=== PATIENT | female | born 2000 | race Caucasian/White ===

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

== ENCOUNTER 2021-08-29 21:46 | Emergency (ER) | payer MEDICAID, SELFPAY ==
[2021-08-29 22:03] VITALS: BP 102/60; PULSE 75; RESP 16; TEMP 36.7; O2SAT 100
--- NOTE | 2021-08-29 22:42 | ED_ITS ---
HPI - Female Genitourinary General: Chief complaint: Urogenital-Female Time Seen by Provider: 08/29/21 22:33 Source: patient Mode of arrival: ambulatory Limitations: no limitations History of Present Illness: HPI Narrative: 21-year-old female states that she does have a new sexual partner and believes she has an STD. States over the last week she been having genital itching along with a discharge that is foul- smelling. States she is also 1 day late for her period. She denies any fever denies any abdominal pain. Denies any worsening improving factors. Associated symptoms: Reports vaginal discharge; Deny abdominal pain, headache(s) or nausea Review of Systems Const: Denies: fever(s), chills, body aches or change in appetite Eyes: Denies: blurry vision or eye discomfort ENMT: Denies: throat pain or dental pain Card: Denies: chest pain Resp: Denies: dyspnea GI: Denies: abdominal pain, nausea, vomiting or diarrhea : Reports: genital pruritis and vaginal discharge Musc: Denies: neck pain or back pain Skin/Breast: Denies: rash Neuro: Denies: headache(s) Psych: Denies: depression Best/Lymph: Denies: easy bruising All/Imm: Denies: urticaria Physical Exam Const: COMMON NORMALS: no acute distress, patient oriented x3 and healthy appearing HENMT: COMMON NORMALS: normocephalic and atraumatic HEAD & SCALP: normocephalic and atraumatic Eye: COMMON NORMALS: Equal, round and reactive pupils present and EOMs intact bilaterally PUPIL: Yes Equal, round and reactive pupils present Neck/C-Spine: COMMON NORMALS: full ROM and supple Chest: COMMONS NORMALS: normal inspection of the chest and normal palpation of entire chest wall Resp: COMMON NORMALS: normal respiratory effort, No retractions, No use of accessory muscles and clear to auscultation bilaterally AUSCULTATION: clear to auscultation bilaterally Cardio: COMMON NORMALS: regular rate, regular rhythm and No murmurs present (Cardio) RATE: regular rate RHYTHM: regular rhythm GI: COMMON NORMALS: Normal to inspection, nondistended, normoactive bowel sounds present, Soft to palpation, non-tender and no masses PALPATION: Yes Soft to palpation : OTHER: Slight cervicitis with discharge no cervical motion tenderness Extremity: COMMON NORMALS: normal to inspection and full ROM Neuro: COMMON NORMALS: patient oriented x3, moves all extremities and no focal motor deficits Psych: COMMON NORMALS: mental status grossly normal, Normal thought process present and cooperative THOUGHT PROCESS: Normal thought process present Skin: COMMON NORMALS: no rashes or lesions noted and no wounds GENERAL SKIN EXAM: no rashes or lesions noted Course Vital Signs: Vital signs: Vital Signs Temperature 98.1 F 08/29/21 22:03 Pulse Rate 75 08/29/21 22:03 Respiratory Rate 16 08/29/21 22:03 Blood Pressure 102/60 08/29/21 22:03 Pulse Oximetry 100 08/29/21 22:03 MDM - Female MDM Narrative: Medical decision making narrative: Patient presents with vaginal discharge likely STD patient given Rocephin and azithromycin here. She has no signs of PID. She is stable for discharge counseled on safe sex and is to return if worsening. Lab Data: Labs: Lab Results 08/29/21 08/29/21 22:35 22:35 HCG, Qual Negative (Negative) Urine Color Yellow (Yellow) Urine Appearance Turbid (CLEAR) Urine pH 5 (5-7) Ur Specific Gravit y 1.020 (1.005-1.030) Urine Protein Neg (Negative) Urine Glucose (UA) Norm (Normal) Urine Ketones Negative (Negative) Urine Blood 2+ H (Negative) Urine Nitrate Positive H (Negative) Urine Bilirubin Neg (Negative) Urine Urobilinogen Norm mg/dL mg/dL (Negative) Ur Leukocyte Iram ase 2+ H (Negative) Urine RBC 5-10 /hpf H /hpf (0-2) Urine WBC 10-15 /hpf H /hpf (0-5) Ur Squamous Epith Cells 25-40 /hpf H /hpf (0-5) Amorphous Sediment Not Reportable Urine Bacteria 4+ /hpf H /hpf (NONE) Discharge Plan Discharge Patient Disposition: Home Clinical Impression: Vaginal discharge Condition: Stable Prescriptions: No Action 28-800 mg-mcg Tablet See Rx Instructions .ROUTE .COMPLEX RF: 0 Discharge Orders: Discharge ED (Routine); Ordered 08/29/21 Ordered By: Seth King Discharge Diet: Advance as tolerated Discharge Activity: Resume usual activity Patient Instructions: Vaginal Discharge (ED) Coding Level of Care Code ED Exceptional Children'S Teacher for Chg Fwd Exam Comprehensive
[2021-08-29 22:48] LABS: HCG Qualitative Urine. Negative (Negative)
[2021-08-29 22:58] LABS: Add Urine Culture? No; Add Urine Microscopic? YES; Bacteria Urine 4+ /hpf; Bilirubin Urine Neg (Negative); Blood Urine 2+ (Negative); Glucose Urine UA Norm (Normal); Ketones Urine Negative (Negative); Leukocyte Esterase Urine 2+ (Negative); Nitrate Urine Positive (Negative); Protein Urine Neg (Negative); Squamous Epithelial Cell Urine 25-40 /hpf (0-5); Urine Appearance Turbid (CLEAR); Urine Color Yellow (Yellow); Urobilinogen Urine Norm (Negative); pH Urine 5 (5-7)
[2021-08-29] MEDS: azithromycin 250 mg Tablet 1000 MG PO (23:39)
[2021-08-29 23:49] VITALS: RESP 16
== END 2021-08-29 23:51 | disposition home or self-care (01) ==
PROVIDERS: Emergency Provider Emergency Medicine
DX: N89.8 Other specified noninflammatory disorders of vagina (principal); Z20.2 Contact with and (suspected) exposure to infections with a predominantly sexual mode of transmission
CPT/HCPCS: 81001; 81025; 87210; 87491; 87591; 96372; 99283; J0696; Q0144

== ENCOUNTER 2022-02-25 11:13 | Emergency (ER) | payer MEDICAID, SELFPAY ==
[2022-02-25 11:30] VITALS: BP 99/57; PULSE 80; RESP 18; TEMP 37; O2SAT 98; BMI 25.7
--- NOTE | 2022-02-25 12:13 | XRR_ITS ---
PROCEDURE INFORMATION: Exam: XR Chest Exam date and time: 02/25/2022 12:35 PM Age: 22 years old Clinical indication: Cough and dyspnea; Additional info: Cough; Shield-preg TECHNIQUE: Imaging protocol: XR of the chest. Views: 1 view. COMPARISON: CT abdomen pelvis w con* [id number] 06/05/2019 6:23 AM FINDINGS: Lungs: Unremarkable. No consolidation. Pleural spaces: Unremarkable. No pleural effusion. No pneumothorax. Heart/Mediastinum: Unremarkable. No cardiomegaly. Bones/joints: Unremarkable. XR/XR chest 1V portable [id number] IMPRESSION: No acute findings.
[2022-02-25 12:23] VITALS: BP 100/69; PULSE 88; RESP 18; O2SAT 98
--- NOTE | 2022-02-25 12:39 | W.ED.URI ---
HPI - URI/Sore Throat General: Chief Complaint: General Medical Stated Complaint: Sore Throat, Diff breathing Time Seen by Provider: 02/25/22 11:36 Source: patient and family () Mode of arrival: ambulatory Limitations: no limitations History of Present Illness: Patient is a 22-year-old female presents to ED today with complaint of a cough, runny nose, nasal congestion, sore throat, and hoarseness that been present over the past 2 to 3 days. Patient states her daughter is sick with similar symptoms. She has not been running fevers. No abdominal pains, nausea, vomiting, diarrhea. She is 6 months . No vaginal bleeding/leaking of fluids. Normal movements. MD elicited complaint: cough, sore throat, rhinorrhea and nasal congestion Onset (ago): day(s) Description of mucous: clear Able to tolerate fluids by mouth: Yes Context: sick contacts (daughter) Associated symptoms: Reports nasal congestion; Deny abdominal pain, chills, chest pain, diarrhea, ear or mastoid pain, fever(s), headache(s), nausea or vomiting Treatments prior to arrival: cold medicine Review of Systems Const: Denies: fever(s), chills, body aches, fatigue or malaise Eyes: Denies: change in vision ENMT: Reports: throat pain, odynophagia, nasal discharge, nasal congestion and other (hoarseness); Denies: uvular edema, enlarged tonsils, swelling of lips/tongue, oral sores, dental pain, ear or mastoid pain or ear discharge Card: Denies: chest pain Resp: Reports: non-productive cough; Denies: dyspnea, wheezing or hemoptysis GI: Denies: abdominal pain, nausea, vomiting or diarrhea Musc: Denies: neck pain, back pain, extremity pain or joint pain Skin/Breast: Denies: rash Neuro: Denies: headache(s) Physical Exam Const: COMMON NORMALS: no acute distress, average body habitus, patient oriented x3, no limitations, healthy appearing, alert and well nourished HENMT: COMMON NORMALS: normocephalic, atraumatic and Normal external nose present HEAD & SCALP: normal to inspection, normocephalic and atraumatic FACE & SINUS: normal facial exam and sinuses nontender NOSE: Normal external nose present MOUTH: Normal oral and palatal mucosa present, lip normal and tongue normal THROAT: posterior oropharynx normal, tonsils normal, uvula midline and other (hoarseness); no uvular edema Eye: GENERAL EYE: appearance normal, both eyes and all related structures Neck/C-Spine: COMMON NORMALS: full ROM, no lymphadenopathy and no meningeal signs Resp: COMMON NORMALS: normal respiratory effort and clear to auscultation bilaterally AUSCULTATION: clear to auscultation bilaterally Cardio: COMMON NORMALS: regular rate and regular rhythm RATE: regular rate RHYTHM: regular rhythm GI: COMMON NORMALS: Normal to inspection, nondistended, normoactive bowel sounds present and non-tender INSPECTION: Yes gravid abdomen : COMMON NORMALS: Yes no CVA tenderness BLADDER/KIDNEY EXAM: Yes no CVA tenderness Back/Pelvis: COMMON NORMALS: no CVA tenderness Extremity: COMMON NORMALS: normal to inspection Neuro: COMMON NORMALS: patient oriented x3 SENSORIUM/ORIENTATION: Yes alert MENINGEAL SIGNS: Yes no meningeal signs Skin: COMMON NORMALS: no rashes or lesions noted GENERAL SKIN EXAM: no rashes or lesions noted Course Vital Signs: Vital signs: Vital Signs Temperature 98.6 F 02/25/22 11:30 Pulse Rate 92 02/25/22 13:02 Respiratory Rate 18 02/25/22 13:02 Blood Pressure 104/72 02/25/22 13:02 Pulse Oximetry 97 02/25/22 13:02 MDM - URI/Sore Throat Medical Decision Making Clinically patient appears in no acute distress. Her vital signs are normal. CXR is normal. Patient is afebrile. Discussed how symptoms are most likely related to viral upper respiratory infection. We discussed extensively regarding conservative treatments she can try at home that would be safe in as well as safe OTC options. Return to ED precautions given. Lab Data Radiology Impressions Chest X-Ray 02/25/22 12:13 IMPRESSION: No acute findings. Discharge Plan Discharge Patient Disposition: Home Clinical Impression: Viral upper respiratory infection Condition: Stable Prescriptions: No Action 28-800 mg-mcg Tablet See Rx Instructions .ROUTE .COMPLEX 0RF Rx Instructions: ONE DOSE DAILY Discharge Orders: Discharge ED (Routine); Ordered 02/25/22 Ordered By: Salma De Luna Patient Instructions: Upper Respiratory Infection (ED) Stand Alone Forms: Work/School Release Coding Level of Care Code ED Ophthalmic Technologist for Chg Fwd Exam Comprehensive
[2022-02-25 13:02] VITALS: BP 104/72; PULSE 92; RESP 18; O2SAT 97
== END 2022-02-25 13:03 | disposition home or self-care (01) ==
PROVIDERS: Emergency Provider Physician Assistant
DX: J06.9 Acute upper respiratory infection, unspecified (principal)
CPT/HCPCS: 71045; 99282

== ENCOUNTER 2022-04-17 18:05 | Outpatient (CLI) | payer MEDICAID, SELFPAY ==
[2022-04-17] VITALS (37 sets, daily range): BP systolic 110–137; BP diastolic 59–79; PULSE 92–178; RESP 16; O2SAT 91–100; BMI 26.2
[2022-04-17] MEDS: terbutaline 1 mg/mL INJ 0.25 MG SUBCUT ×2 (19:21→20:49)
[2022-04-17] MEDS: lactated ringers 1,000 ML 999 ML IV (20:49)
--- NOTE | 2022-04-17 22:10 | PC.NURSE ---
Physician Communication Summary 2018 Call placed by this nurse to Dr. Davies to report contractions approximately 4-6 minutes apart, but with difficulty tracing. Also reported cervical exam of no change from previous exam, patient's cervix is closed with a dimple. MD ordered one liter of lactated ringers and one additional dose of 0.25 mg Brethine. [id number] Davies reporting 1 contraction in 20 minutes according to patient report with contraction marker. Also reported a reactive NST. MD ordered to discharge patient home after fluids have finished.
== END 2022-04-17 21:46 | disposition home or self-care (01) ==
LOC: OPOB 18:14 → OBGYN 18:18
PROVIDERS: Visit Provider Family Medicine
DX: O26.899 Other specified pregnancy related conditions, unspecified trimester (principal); Z3A.00 Weeks of gestation of pregnancy not specified; R10.9 Unspecified abdominal pain
CPT/HCPCS: 59025; 96372; 99211; J3105

== ENCOUNTER 2022-10-11 23:09 | Emergency (ER) | payer MEDICAID, SELFPAY ==
[2022-10-11 23:15] VITALS: BP 137/75; PULSE 80; RESP 16; TEMP 36.4; O2SAT 99; BMI 24.0
--- NOTE | 2022-10-11 23:26 | ED_ITS ---
HPI - General: Chief complaint: Vaginal Bleeding Stated complaint: might be wanting blood work Time Seen by Provider: 10/11/22 23:24 Source: patient Mode of arrival: ambulatory Limitations: no limitations History of Present Illness: 22-year-old female who believes she may be . She states she took a home test a week ago was positive states she started having bleeding after that though. Her last menstruation was in August. She states she is unsure if she is actually or not and wants a blood test. She denies any pain denies any heavy bleeding. Denies passing any clots or tissue Date of Last Menstrual Period: 09/06/22 Associated symptoms: Deny abdominal pain, headache(s), nausea or vomiting Review of Systems Const: Denies: fever(s), chills, body aches or change in appetite Eyes: Denies: blurry vision or eye discomfort ENMT: Denies: throat pain or dental pain Card: Denies: chest pain Resp: Denies: dyspnea GI: Denies: abdominal pain, nausea, vomiting or diarrhea : Reports: vaginal bleeding Musc: Denies: neck pain or back pain Skin/Breast: Denies: rash Neuro: Denies: headache(s) Psych: Denies: depression Best/Lymph: Denies: easy bruising All/Imm: Denies: urticaria PFSH ED PFSH: Medical History (Updated 10/12/22 @ 00:27 by Seth King MD) No pertinent past medical history Social History (Updated 10/11/22 @ 23:26 by Seth King MD) Substance/Drug Use: never Female Reproductive History: Date of last menstrual period: 09/06/22 Physical Exam Const: COMMON NORMALS: no acute distress, patient oriented x3 and healthy appearing HENMT: COMMON NORMALS: normocephalic and atraumatic HEAD & SCALP: normocephalic and atraumatic Eye: COMMON NORMALS: Equal, round and reactive pupils present and EOMs intact bilaterally PUPIL: Yes Equal, round and reactive pupils present Neck/C-Spine: COMMON NORMALS: full ROM and supple Chest: COMMONS NORMALS: normal inspection of the chest and normal palpation of entire chest wall Resp: COMMON NORMALS: normal respiratory effort, No retractions, No use of accessory muscles and clear to auscultation bilaterally AUSCULTATION: clear to auscultation bilaterally Cardio: COMMON NORMALS: regular rate, regular rhythm and No murmurs present (Cardio) RATE: regular rate RHYTHM: regular rhythm GI: COMMON NORMALS: Normal to inspection, nondistended, normoactive bowel sounds present, Soft to palpation, non-tender and no masses PALPATION: Yes Soft to palpation Extremity: COMMON NORMALS: normal to inspection and full ROM Neuro: COMMON NORMALS: patient oriented x3, moves all extremities and no focal motor deficits Psych: COMMON NORMALS: mental status grossly normal, Normal thought process present and cooperative THOUGHT PROCESS: Normal thought process present Skin: COMMON NORMALS: no rashes or lesions noted and no wounds GENERAL SKIN EXAM: no rashes or lesions noted Course Vital Signs: Vital signs: Vital Signs Temperature 97.6 F 10/11/22 23:15 Pulse Rate 80 10/11/22 23:15 Respiratory Rate 16 10/11/22 23:15 Blood Pressure 137/75 10/11/22 23:15 Pulse Oximetry 99 10/11/22 23:15 Oxygen Delivery Me thod 10/11/22 23:15 MDM - OB/Uterine Contractions Medical Decision Making Patient presents here with vaginal bleeding likely her menstruation her testing is negative she is well-appearing here she is not bleeding a large amount she is stable for discharge. Lab Data Laboratory Results Ser , Semi-Qnt 1.00 mIU/mL 10/11/22 23:55 Discharge Plan Discharge Patient Disposition: Home Clinical Impression: Vaginal bleeding Prescriptions: No Action 28-800 mg-mcg Tablet See Rx Instructions .ROUTE .COMPLEX Rx Instructions: ONE DOSE DAILY Discharge Orders: Discharge ED (Routine); Ordered 10/12/22 Ordered By: Seth King Discharge Diet: Advance as tolerated Discharge Activity: Resume usual activity Patient Instructions: Abnormal (Dysfunctional) Uterine Bleeding (ED) Coding Level of Care Code ED Database Report Writer for Chg Fwd Exam Comprehensive
[2022-10-12 00:35] VITALS: BP 102/66; PULSE 72; RESP 16; O2SAT 97
== END 2022-10-12 00:36 | disposition home or self-care (01) ==
PROVIDERS: Emergency Provider Emergency Medicine
DX: N93.9 Abnormal uterine and vaginal bleeding, unspecified (principal)
CPT/HCPCS: 36415; 84702; 99282

== ENCOUNTER 2023-06-14 10:54 | Emergency (ER) | payer MEDICAID, SELFPAY ==
[2023-06-14 11:10] VITALS: BP 93/65; PULSE 71; RESP 18; TEMP 36.7; O2SAT 100; BMI 25.9
[2023-06-14 12:04] LABS: Basophils # 0.1 10^3/uL (0.0-0.1); Basophils % 0.4 %; Eosinophils % 0.2 %; Hematocrit 33.6 % (37.0-47.0); Hemoglobin 10.5 g/dL (11.5-15.3); Lymphocytes # 3.1 10^3/uL (0.8-4.8); Lymphocytes % 23.2 %; Mean Corpuscular HGB Conc 31.3 g/dL (30.0-36.0); Mean Corpuscular Hemoglobin 27.6 pg (28.0-34.0); Mean Corpuscular Volume 88.2 fl (81-99); Monocytes # 0.6 10^3/uL (0.2-0.9); Monocytes % 4.2 %; Neutrophils # 9.62 10^3/uL (1.8-7.7); Neutrophils % 71.6 %; Nucleated Red Blood Cells % 0 %; Platelet Count 262 10^3/cmm (130-400); Red Blood Count 3.81 10^6/uL (4.1-5.3); Red Cell Distribution Width 14.6 % (12.1-15.1); White Blood Count 13.5 10^3/uL (4.0-10.0)
[2023-06-14 12:07] VITALS: BP 115/58; PULSE 76; RESP 16; O2SAT 97
[2023-06-14 12:28] LABS: Alanine Aminotransferase 6 U/L (0-33); Albumin Level 3.7 g/dL (3.5-5.2); Alkaline Phosphatase 71 U/L (35-105); Anion Gap 15.8 (5-19); Aspartate Amino Transferase 13 U/L (0-32); Blood Urea Nitrogen 7 mg/dL (6-20); Carbon Dioxide 19 mmol/L (22-29); Chloride 103 mmol/L (98-107); Globulin 3.2 g/dL (1.3-4.6); Glomerular Filtration Rate 199.6 mL/min (90-130); Glucose 76 mg/dL (65-115); Lipase 18 U/L (13-60); Osmolality Calculated 275 mOsm/kg (285-295); Potassium 3.8 mmol/L (3.5-5.1); Sodium 134 mmol/L (136-145); Total Bilirubin 0.5 mg/dL (0.15-1.2); Total Protein 6.9 g/dL (6.6-8.7)
--- NOTE | 2023-06-14 12:33 | W.ED.ABDPA2 ---
HPI - Abdominal Pain General: Chief Complaint: Abdominal Pain Stated Complaint: 18 Weeks preg, abd pain, Dizzy Time Seen by Provider: 06/14/23 11:56 Source: patient Mode of arrival: ambulatory History of Present Illness: 23-year-old female G1, P0 at approximately 18 weeks gestation comes in complaining lower abdominal pain and cramping with dizziness, vomiting and nausea. She has not had any diarrhea. She denies any vaginal discharge or bleeding no dysuria urgency or frequency. MD elicited complaint: abdominal pain Onset (ago): hour(s) Pain Consistency: intermittent Location: Suprapubic Severity: moderate Quality: cramping Radiation: none Associated Symptoms: Reports GI cramping, nausea and poor appetite; Denies anorexia, belching, bloating, change in bowel habits, change in stool character, chills, coffee ground emesis, constipation, diarrhea, dyspepsia, dysuria, excessive flatus, fever(s), heartburn, hematochezia, hematuria, hematemesis, fecal incontinence, loose stools, melena, syncope and vomiting Review of Systems Const: Denies: fever(s) or chills Card: Denies: chest pain, palpitations, irregular heart rhythm or syncope Resp: Denies: dyspnea, productive cough or non-productive cough GI: Reports: nausea and GI cramping; Denies: vomiting, hematemesis, coffee ground emesis, heartburn, diarrhea, constipation, bloating, belching, excessive flatus, fecal incontinence, change in bowel habits, change in stool character, hematochezia or melena : Denies: dysuria, urinary frequency, urinary urgency or hematuria Musc: Denies: neck pain or back pain Skin/Breast: Denies: rash or pruritus PFSH ED PFSH: Medical History No pertinent past medical history Social History Substance/Drug Use: never Physical Exam Const: GENERAL APPEARANCE: cooperative and comfortable ORIENTATION/CONSCIOUSNESS: Yes awake, Yes oriented to person, Yes oriented to place and Yes oriented to time HENMT: COMMON NORMALS: normocephalic, atraumatic and hearing grossly normal bilaterally HEAD & SCALP: normocephalic and atraumatic Resp: COMMON NORMALS: normal respiratory effort, No retractions, No use of accessory muscles and clear to auscultation bilaterally AUSCULTATION: clear to auscultation bilaterally Cardio: COMMON NORMALS: regular rate, regular rhythm and No murmurs present (Cardio) RATE: regular rate RHYTHM: regular rhythm GI: COMMON NORMALS: Soft to palpation and No hepatosplenomegaly present AUSCULTATION: Yes normoactive bowel sounds PALPATION: Yes Soft to palpation, No Tenderness to palpation present (GI), No Guarding due to palpation present (GI) and Yes No hepatosplenomegaly present Extremity: COMMON NORMALS: normal to inspection, capillary refill normal, no clubbing, cyanosis or edema, no calf tenderness and no pedal edema Neuro: SENSORIUM/ORIENTATION: Yes oriented to person, Yes oriented to place and Yes oriented to time Skin: COMMON NORMALS: no rashes or lesions noted GENERAL SKIN EXAM: no rashes or lesions noted Course Vital Signs: Vital signs: Vital Signs Temperature 98.0 F 06/14/23 11:10 Pulse Rate 76 06/14/23 12:07 Respiratory Rate 16 06/14/23 12:07 Blood Pressure 115/58 06/14/23 12:07 Pulse Oximetry 97 06/14/23 12:07 Oxygen Delivery Me thod Room Air 06/14/23 12:07 MDM - Abdominal Pain Medical Decision Making Nausea and vomiting improved after fluids and medications. Bedside ultrasound gross motion and activity noted. heart tones 130s to 140s. Clear liquid diet 24 to 48 hours promethazine as needed for nausea vomiting follow-up with OB Medical Records I reviewed the patient's medical records. Lab Data I reviewed the patient's lab results. 06/14/23 11:57 06/14/23 11:57 Labs/Radiology: Laboratory Results WBC 13.5 10^3/uL (4.0-10.0) H 06/14/23 11:57 RBC 3.81 10^6/uL (4.1-5.3) L 06/14/23 11:57 Hgb 10.5 g/dL (11.5-15.3) L 06/14/23 11:57 Hct 33.6 % (37.0-47.0) L 06/14/23 11:57 MCV 88.2 fl (81-99) 06/14/23 11:57 MCH 27.6 pg (28.0-34.0) L 06/14/23 11:57 MCHC 31.3 g/dL (30.0-36.0) 06/14/23 11:57 RDW 14.6 % (12.1-15.1) 06/14/23 11:57 Plt Count 262 10^3/cmm (130-400) 06/14/23 11:57 MPV 10.0 fL (7.4-10.4) 06/14/23 11:57 Neut % (Auto) 71.6 % 06/14/23 11:57 Lymph % (Auto) 23.2 % 06/14/23 11:57 [place] % (Auto) 4.2 % 06/14/23 11:57 Eos % (Auto) 0.2 % 06/14/23 11:57 Baso % (Auto) 0.4 % 06/14/23 11:57 Neut # (Auto) 9.62 10^3/uL (1.8-7.7) H 06/14/23 11:57 Lymph # (Auto) 3.1 10^3/uL (0.8-4.8) 06/14/23 11:57 [place] # (Auto) 0.6 10^3/uL (0.2-0.9) 06/14/23 11:57 Eos # (Auto) 0.0 10^3/uL (0.0-0.8) 06/14/23 11:57 Baso # (Auto) 0.1 10^3/uL (0.0-0.1) 06/14/23 11:57 Nucleated RBC % (auto) 0 % 06/14/23 11:57 Nucleated RBCs # 0.0 /100WBC 06/14/23 11:57 Sodium 134 mmol/L (136-145) L 06/14/23 11:57 Potassium 3.8 mmol/L (3.5-5.1) 06/14/23 11:57 Chloride 103 mmol/L (98-107) 06/14/23 11:57 Carbon Dioxide 19 mmol/L (22-29) L 06/14/23 11:57 Anion Gap 15.8 (5-19) 06/14/23 11:57 BUN 7 mg/dL (6-20) 06/14/23 11:57 Creatinine 0.4 mg/dL (0.5-0.9) L 06/14/23 11:57 GFR Calculation 199.6 mL/min (90-130) H 06/14/23 11:57 Glucose 76 mg/dL (65-115) 06/14/23 11:57 Calculated Osmolality 275 mOsm/kg (285-295) L 06/14/23 11:57 Calcium 9.0 mg/dL (8.5-10.5) 06/14/23 11:57 Total Bilirubin 0.5 mg/dL (0.15-1.2) 06/14/23 11:57 AST 13 U/L (0-32) 06/14/23 11:57 ALT 6 U/L (0-33) 06/14/23 11:57 Alkaline Phosphatase 71 U/L (35-105) 06/14/23 11:57 Total Protein 6.9 g/dL (6.6-8.7) 06/14/23 11:57 Albumin 3.7 g/dL (3.5-5.2) 06/14/23 11:57 Globulin 3.2 g/dL (1.3-4.6) 06/14/23 11:57 Lipase 18 U/L (13-60) 06/14/23 11:57 Urine Color Yellow (Yellow) 06/14/23 13:11 Urine Appearance Clear (CLEAR) 06/14/23 13:11 Urine pH 6 (5-7) 06/14/23 13:11 Ur Specific [place] 1.020 (1.005-1.030) 06/14/23 13:11 Urine Protein Neg (Negative) 06/14/23 13:11 Urine Glucose (UA) Norm (Normal) 06/14/23 13:11 Urine Ketones 1+ (Negative) H 06/14/23 13:11 Urine Blood Neg (Negative) 06/14/23 13:11 Urine Nitrate Negative (Negative) 06/14/23 13:11 Urine Bilirubin Neg (Negative) 06/14/23 13:11 Urine Urobilinogen Norm mg/dL (Negative) 06/14/23 13:11 Ur Leukocyte Esterase Negative (Negative) 06/14/23 13:11 Discharge Plan Discharge Patient Disposition: Home Clinical Impression: Nausea & vomiting Condition: Stable Prescriptions: New promethazine 25 mg tablet 25 mg PO Q6H PRN (Reason: nausea and vomiting) Qty: 20 0RF No Action 28-800 mg-mcg Tablet 1 tab PO DAILY nitrofurantoin macrocrystal 50 mg capsule 50 mg PO BEDTIME nitrofurantoin monohyd/m-cryst 100 mg capsule 100 mg PO BID acetaminophen 500 mg Tablet 500 mg PO Q6H PRN (Reason: Pain) Discharge Orders: Discharge ED (Routine); Ordered 06/14/23 Ordered By: Jairo Villagomez Discharge Diet: Clear Liquid Discharge Activity: Resume usual activity Patient Instructions: Opioid Safety, Pain Management Activity Restrictions/Additional Instructions: You are seen today for persistent nausea vomiting your labs and urine were normal. Bedside ultrasound showed good heart activity and gross motion. Follow-up with your OB as previously scheduled. Clinical diet for 24 to 48 hours promethazine as needed for nausea vomiting Coding Level of Care Code ED Mohs Surgeon/General Dermatologist for [facility]
[2023-06-14] MEDS: sodium chloride 0.9% 1,000 ML 999 ML IV (12:54)
[2023-06-14] MEDS: ondansetron 2 mg/ML SDV 2 mL 4 MG IVP (12:54)
[2023-06-14 13:17] LABS: Add Urine Microscopic? NO; Charge for UA Resulting for Rev
[2023-06-14 13:31] LABS: Bilirubin Urine Neg (Negative); Blood Urine Neg (Negative); Glucose Urine UA Norm (Normal); Ketones Urine 1+ (Negative); Leukocyte Esterase Urine Negative (Negative); Nitrate Urine Negative (Negative); Protein Urine Neg (Negative); Urine Appearance Clear (CLEAR); Urine Color Yellow (Yellow); Urobilinogen Urine Norm (Negative); pH Urine 6 (5-7)
== END 2023-06-14 14:10 | disposition home or self-care (01) ==
PROVIDERS: Physician Assistant; Emergency Provider Family Medicine
DX: O21.0 Mild hyperemesis gravidarum (principal); Z3A.18 18 weeks gestation of pregnancy; Z79.899 Other long term (current) drug therapy
CPT/HCPCS: 36415; 80053; 81003; 83690; 85025; 96374; 99284; J2405; J7030

== ENCOUNTER 2024-04-30 12:50 | Emergency (ER) | payer MEDICAID, SELFPAY ==
[2024-04-30 13:05] VITALS: BP 96/62; PULSE 83; RESP 16; TEMP 36.8; O2SAT 97; BMI 24.0
[2024-04-30 15:11] VITALS: BP 102/64; PULSE 71; RESP 16; O2SAT 99
--- NOTE | 2024-04-30 15:27 | CTR_ITS ---
PROCEDURE INFORMATION: Exam: CT Abdomen And Pelvis With Contrast Exam date and time: 04/30/2024 4:24 PM Age: 24 years old Clinical indication: Abdominal pain; Localized; Left lower quadrant (llq); Patient HX: Patient describes new llq pain but is also having ruq/flank pain that she has DONAHUE for years but has worsened. ; Additional info: Ruq abdominal pain TECHNIQUE: Imaging protocol: Computed tomography of the abdomen and pelvis with contrast. Radiation optimization: All CT scans at this facility use at least one of these dose optimization techniques: automated exposure control; mA and/or kV adjustment per patient size (includes targeted exams where dose is matched to clinical indication); or iterative reconstruction. Contrast material: OMNI 350; Contrast volume: 100 ml; Contrast route: INTRAVENOUS (IV); COMPARISON: No relevant prior studies available. RADIATION DOSE METRICS: Total DLP (mGy-cm): 633.94 FINDINGS: Lungs: 3 mm right lower lobe nodule series 3, image 8. Liver: No significant liver pathology. Gallbladder and bile ducts: No significant gallbladder pathology. No biliary dilatation. Pancreas: No significant pancreatic pathology. Spleen: No significant splenic pathology. Adrenal glands: No significant adrenal pathology. Kidneys and ureters: No significant renal pathology. Stomach and bowel: No significant pathology. Appendix: Appendix within normal limits. Intraperitoneal space: Minimal free fluid is present in the pelvis. Vasculature: No abdominal aortic aneurysm. Lymph nodes: No evidence of lymphadenopathy. Urinary bladder: Small amount of air is present in the urinary bladder. Reproductive: Partially crenulated right ovarian cyst measuring 2 cm with surrounding low attenuation most likely representing recently ruptured cyst/ corpus luteum. Left adnexa unremarkable. No significant uterine pathology. Bones/joints: No significant bony pathology. Soft tissues: Small fat containing umbilical hernia. CT/CT abdomen pelvis w con* [id number] IMPRESSION: 1. No acute pathology. Partially crenulated 2 cm right adnexal cyst most likely representing recently ruptured ovarian cyst or corpus luteum. 2. 3 mm right lower lobe nodule. Per Fleischner criteria, in this age group 12 month follow-up is recommended only in the setting of high risk for malignancy. Clinical correlation recommended.
--- NOTE | 2024-04-30 15:44 | ED_ITS ---
HPI - Abdominal Pain 2 General: Chief Complaint: Abdominal Pain Stated Complaint: abd pain Time Seen by Provider: 04/30/24 13:28 History of Present Illness: 24-year-old female presents emergency de partment chief complaint of having ongoing right upper quadrant and left lower quadrant abdominal pain has been progressively worse last couple days patient reports additional moderate nausea with that she does endorse a prior history of 3 C-sections in the past patient reports no other abdominal surgery she reports she still has her appendix and gallbladder. Patient reports that the pain is worse with eating she reports no back pain or flank pain associated with it or any dysuria. Patient presents to the ER with her for further assessment and management. Associated Symptoms: Reports nausea; Denies chills, fever(s) and vomiting Review of Systems 2 General: Reports: 10 or more systems reviewed and unremarkable except in HPI and below Const: Denies: fever(s), chills, fatigue or malaise Eyes: Denies: change in vision or blurry vision Card: Denies: chest pain or palpitations Resp: Denies: dyspnea or productive cough GI: Reports: abdominal pain and nausea; Denies: vomiting : Denies: flank pain Musc: Denies: extremity pain or extremity swelling Skin/Breast: Denies: rash or pruritus Neuro: Denies: headache(s) Psych: Denies: anxiety or depression Best/Lymph: Denies: easy bleeding All/Imm: Denies: urticaria, throat swelling or facial swelling PFSH ED 2 PFSH: Medical History No pertinent past medical history Social History Substance/Drug Use: never Physical Exam 2 Narrative: EXAM NARRATIVE: Mild distress due to pain and discomfort. Afebrile and nontoxic Const: COMMON NORMALS: patient oriented x3 and healthy appearing HENMT: COMMON NORMALS: normocephalic and atraumatic HEAD & SCALP: n ormocephalic and atraumatic Eye: COMMON NORMALS: Equal, round and reactive pupils present and EOMs intact bilaterally PUPIL: Yes Equal, round and reactive pupils present Neck/C-Spine: COMMON NORMALS: full ROM, supple and no JVD Lymph: LYMPHATIC: no lymphadenopathy noted Chest: COMMONS NORMALS: normal inspection of the chest and normal palpation of entire chest wall Resp: COMMON NORMALS: normal respiratory effort, No retractions and clear to auscultation bilaterally EFFORT & INSPECTION: Yes able to speak in complete sentences and Yes symmetric chest movement AUSCULTATION: clear to auscultation bilaterally Cardio: COMMON NORMALS: no JVD, regular rate and regular rhythm RATE: r egular rate RHYTHM: regular rhythm GI: OTHER: Moderate pain to palpation located in the right upper quadrant as well as left lower quadrant with mild rebound tenderness appreciated otherwise soft nontender : COMMON NORMALS: Yes no CVA tenderness BLADDER/KIDNEY EXAM: Yes no CVA tenderness Back/Pelvis: COMMON NORMALS: no CVA tenderness Extremity: COMMON NORMALS: normal to inspection and full ROM Neuro: COMMON NORMALS: patient oriented x3, CN's II-XII intact bilaterally, moves all extremities and no focal motor deficits Psych: COMMON NORMALS: mental status grossly normal, Normal thought process present, cooperative and normal affect THOUGHT PROCESS: Normal thought process present Skin: COMMON NORMALS: no rashes or lesions noted GENERAL SKIN EXAM: no rashes or lesions noted Course 2 Vital Signs: Vital signs: Vital Signs Temperature 98.3 F 04/30/24 13:05 Pulse Rate 58 L 04/30/24 19:30 Respiratory Rate 16 04/30/24 19:30 Blood Pressure 104/50 04/30/24 19:30 Pulse Oximetry 99 04/30/24 19:30 Oxygen Delivery Me thod Room Air 04/30/24 19:30 MDM - Abdominal Pain Medical Decision Making Due to patient's symptoms and condition lab work and imaging will be obtained medication provided for the patient's associated symptoms we will continue to follow patient's lab work came back reassuring patient was have a right adnexal cyst there was some air noted in the urinary bladder in which is recommended for evaluation for infection urinalysis came back unremarkable patient was advised to further follow-up with primary care in 2 to 3 days in which instructed to return the interim if any of her symptoms persist or worse. She was placed on limited prescription of tramadol for her breakthrough pain control. Lab Data 04/30/24 15:47 04/30/24 15:47 Labs/Radiology: Radiology Impressions Abdomen/Pelvis CT 04/30/24 15:27 IMPRESSION: 1. No acute pathology. Partially crenulated 2 cm right adnexal cyst most likely representing recently ruptured ovarian cyst or corpus luteum. 2. 3 mm right lower lobe nodule. Per Fleischner criteria, in this age group 12 month follow-up is recommended only in the setting of high risk for malignancy. Clinical correlation recommended. ADDENDUM: 04/30/24 1740 Following statement should have been included in the impression: Air is present in the urinary bladder. Clinical correlation with any recent instrumentation recommended as this appearance can also be seen in setting of infection or fistula. ADDENDUM: 04/30/24 1746 THIS REPORT CONTAINS FINDINGS THAT MAY BE CRITICAL TO PATIENT CARE. The findings were verbally communicated via telephone conference with SOLIS GONZALEZ at 5:45 PM CDT on 04/30/2024. The findings were acknowledged and understood. ADDENDUM: 04/30/[address] dated 06/05/2019 has become available for comparison. A right lower lobe nodule measuring 3 mm is not significantly changed consistent with benign pathology. No further follow-up is required per Fleischner criteria. Laboratory Results WBC 10.40 10^3/uL (3.29-11.43) 04/30/24 15:47 RBC 4.42 10^6/uL (3.85-5.65) 04/30/24 15:47 Hgb 12.30 g/dL (11.27-16.99) 04/30/24 15:47 Hct 38.0 % (36-47) 04/30/24 15:47 MCV 86.0 fl (85-98) 04/30/24 15:47 MCH 27.8 pg (27-33) 04/30/24 15:47 MCHC 32.4 g/dL (30-55) 04/30/24 15:47 RDW 15.1 % (12.1-15.1) 04/30/24 15:47 Plt Count 317 10^3/cmm (157-399) 04/30/24 15:47 MPV 10.1 fL (7.4-10.4) 04/30/24 15:47 Neut % (Auto) 61.4 % 04/30/24 15:47 Lymph % (Auto) 30.9 % 04/30/24 15:47 [place] % (Auto) 5.5 % 04/30/24 15:47 Eos % (Auto) 0.6 % 04/30/24 15:47 Baso % (Auto) 0.4 % 04/30/24 15:47 Neut # (Auto) 6.40 10^3/uL (1.8-7.7) 04/30/24 15:47 Lymph # (Auto) 3.2 10^3/uL (0.8-4.8) 04/30/24 15:47 [place] # (Auto) 0.6 10^3/uL (0.2-0.9) 04/30/24 15:47 Eos # (Auto) 0.1 10^3/uL (0.0-0.8) 04/30/24 15:47 Baso # (Auto) 0.0 10^3/uL (0.0-0.1) 04/30/24 15:47 Nucleated RBC % (auto) 0 % 04/30/24 15:47 Nucleated RBCs # 0.0 /100WBC 04/30/24 15:47 Sodium 142 mmol/L (136-145) 04/30/24 15:47 Potassium 4.2 mmol/L (3.5-5.1) 04/30/24 15:47 Chloride 107 mmol/L (98-107) 04/30/24 15:47 Carbon Dioxide 25 mmol/L (22-29) 04/30/24 15:47 Anion Gap 14.2 (5-19) 04/30/24 15:47 BUN 10 mg/dL (6-20) 04/30/24 15:47 Creatinine 0.6 mg/dL (0.5-0.9) 04/30/24 15:47 GFR Calculation 123.9 mL/min (90-130) 04/30/24 15:47 Glucose 86 mg/dL (65-115) 04/30/24 15:47 Calculated Osmolality 292 mOsm/kg (285-295) 04/30/24 15:47 Calcium 9.2 mg/dL (8.5-10.5) 04/30/24 15:47 Total Bilirubin 0.5 mg/dL (0.15-1.2) 04/30/24 15:47 AST 19 U/L (0-32) 04/30/24 15:47 ALT 16 U/L (0-33) 04/30/24 15:47 Alkaline Phosphatase 84 U/L (35-105) 04/30/24 15:47 C-Reactive Protein 3.3 mg/L (0.0-4.9) 04/30/24 15:47 Total Protein 8.0 g/dL (6.6-8.7) 04/30/24 15:47 Albumin 4.4 g/dL (3.5-5.2) 04/30/24 15:47 Globulin 3.6 g/dL (1.3-4.6) 04/30/24 15:47 Lipase 25 U/L (13-60) 04/30/24 15:47 Urine Color Yellow (Yellow) 04/30/24 15:00 Urine Appearance Clear (CLEAR) 04/30/24 15:00 Urine pH 7 (5-7) 04/30/24 15:00 Ur Specific [place] 1.015 (1.005-1.030) 04/30/24 15:00 Urine Protein Neg (Negative) 04/30/24 15:00 Urine Glucose (UA) Norm (Normal) 04/30/24 15:00 Urine Ketones Negative (Negative) 04/30/24 15:00 Urine Blood Neg (Negative) 04/30/24 15:00 Urine Nitrate Negative (Negative) 04/30/24 15:00 Urine Bilirubin Neg (Negative) 04/30/24 15:00 Urine Urobilinogen Norm mg/dL (Negative) 04/30/24 15:00 Ur Leukocyte Esterase Negative (Negative) 04/30/24 15:00 All radiology interpretation(s) finalized by discharge Discharge Plan Discharge Patient Disposition: Home Clinical Impression: Ovarian cyst rupture Abdominal pain Qualifiers: Abdominal location: generalized Qualified Code(s): R10.84 - Generalized abdominal pain Condition: Stable Prescriptions: New tramadol 50 mg tablet 50 mg PO Q8H PRN (Reason: pain) Qty: 20 0RF No Action 28-800 mg-mcg Tablet 1 tab PO DAILY nitrofurantoin macrocrystal 50 mg capsule 50 mg PO BEDTIME nitrofurantoin monohyd/m-cryst 100 mg capsule 100 mg PO BID acetaminophen 500 mg Tablet 500 mg PO Q6H PRN (Reason: Pain) promethazine 25 mg tablet 25 mg PO Q6H PRN (Reason: nausea and vomiting) Qty: 20 0RF Discharge Orders: Discharge ED (Routine); Ordered 04/30/24 Ordered By: Solis Gonzalez Patient Instructions: Abdominal Pain (ED), Opioid Safety, Pain Management Coding Level of Care Code ED [employer] for [facility]
[2024-04-30] MEDS: ketorolac 30 mg/mL INJ IVP (15:55)
[2024-04-30] MEDS: ondansetron 2 mg/ML SDV 2 mL 4 MG IVP (15:55)
[2024-04-30] MEDS: sodium chloride 0.9% 1,000 ML 999 ML IV (15:55)
[2024-04-30 15:57] LABS: Add Urine Microscopic? NO; Charge for UA Resulting for Rev
[2024-04-30 16:00] VITALS: BP 114/55; PULSE 57; O2SAT 98
[2024-04-30 16:01] LABS: Basophils % 0.4 %; Eosinophils # 0.1 10^3/uL (0.0-0.8); Eosinophils % 0.6 %; Lymphocytes # 3.2 10^3/uL (0.8-4.8); Lymphocytes % 30.9 %; Mean Corpuscular HGB Conc 32.4 g/dL (30-55); Mean Corpuscular Hemoglobin 27.8 pg (27-33); Mean Platelet Volume 10.1 fL (7.4-10.4); Monocytes # 0.6 10^3/uL (0.2-0.9); Monocytes % 5.5 %; Neutrophils % 61.4 %; Nucleated Red Blood Cells % 0 %; Platelet Count 317 10^3/cmm (157-399); Red Blood Count 4.42 10^6/uL (3.85-5.65); Red Cell Distribution Width 15.1 % (12.1-15.1)
[2024-04-30 16:02] LABS: Bilirubin Urine Neg (Negative); Blood Urine Neg (Negative); Glucose Urine UA Norm (Normal); Ketones Urine Negative (Negative); Leukocyte Esterase Urine Negative (Negative); Nitrate Urine Negative (Negative); Protein Urine Neg (Negative); Specific Gravity, Urine 1.015 (1.005-1.030); Urine Appearance Clear (CLEAR); Urine Color Yellow (Yellow); Urobilinogen Urine Norm (Negative); pH Urine 7 (5-7)
[2024-04-30 16:21] LABS: Alanine Aminotransferase 16 U/L (0-33); Albumin Level 4.4 g/dL (3.5-5.2); Alkaline Phosphatase 84 U/L (35-105); Aspartate Amino Transferase 19 U/L (0-32); Blood Urea Nitrogen 10 mg/dL (6-20); C Reactive Protein 3.3 mg/L (0.0-4.9); Calcium 9.2 mg/dL (8.5-10.5); Carbon Dioxide 25 mmol/L (22-29); Chloride 107 mmol/L (98-107); Creatinine Clr Calc Pharmacy 134.0301; Globulin 3.6 g/dL (1.3-4.6); Glomerular Filtration Rate 123.9 mL/min (90-130); Glucose 86 mg/dL (65-115); Lipase 25 U/L (13-60); Osmolality Calculated 292 mOsm/kg (285-295); Sodium 142 mmol/L (136-145); Total Bilirubin 0.5 mg/dL (0.15-1.2)
[2024-04-30] MEDS: iohexol 350 mg/mL 500 mL Btl (per mL) IV (16:27)
[2024-04-30 16:35] LABS: Anion Gap 14.2 (5-19); Potassium 4.2 mmol/L (3.5-5.1)
[2024-04-30 19:30] VITALS: BP 104/50; PULSE 58; RESP 16; O2SAT 99
== END 2024-04-30 20:13 | disposition home or self-care (01) ==
PROVIDERS: Emergency Provider Emergency Medicine
DX: R10.84 Generalized abdominal pain (principal); N83.201 Unspecified ovarian cyst, right side
CPT/HCPCS: 74177; 80053; 81003; 83690; 85025; 86140; 96361; 96374; 96375; 99285; J1885; J2405; J7030; Q9967